=== PATIENT | male | born 2000 | race Two or more races ===

== ENCOUNTER 2021-04-01 23:39 | Emergency (ER) | payer SELFPAY ==
[~2021-04-01] VITALS: Ht 175.3 cm; Wt 90.7 kg
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
--- NOTE | 2021-04-02 00:10 | NUR ---
XRAY AT BEDSIDE
--- NOTE | 2021-04-02 00:22 | NUR ---
[facility] AT BEDSIDE
--- NOTE | 2021-04-02 00:37 | NUR ---
XRAY AT BEDSIDE
[2021-04-02] MEDS ORDERED: HYDROCODONE/APAP 5/325MG TABLET PO ONE (01:30)
[2021-04-02] MEDS ORDERED: IBUPROFEN 600 MG TABLET PO ONE (01:30)
--- NOTE | 2021-04-02 01:30 | NUR ---
emt at bedside placing r wrist velcro splint and herve bandange on left knee.
[2021-04-02] MEDS ORDERED: HYDROCODONE/APAP 5/325MG TABLET ONE (01:31)
[2021-04-02] MEDS ORDERED: IBUPROFEN 600 MG TABLET ONE (01:32)
[2021-04-02] MEDS ORDERED: IBUP-1955 PO (01:43)
[2021-04-02] MEDS ORDERED: TRAM50TA2 PO (01:43)
--- NOTE | 2021-04-02 01:43 | NUR ---
Patient discharged to home in stable condition. Written and verbal after care instructions given. Patient verbalizes understanding of instruction.Pt ambulatory with a steady gait
[2021-04-02 01:50] VITALS: BP 125/85
== END 2021-04-02 01:43 | disposition home or self-care (01) ==
LOC: ER 23:42
DX: S50.12XA Contusion of left forearm, initial encounter (principal); S80.12XA Contusion of left lower leg, initial encounter; S69.82XA Other specified injuries of left wrist, hand and finger(s), initial encounter; V32.5XXA Driver of three-wheeled motor vehicle injured in collision with two- or three-wheeled motor vehicle in traffic accident, initial encounter; Y93.89 Activity, other specified; Y92.413 State road as the place of occurrence of the external cause; Y99.8 Other external cause status
CPT/HCPCS: 73090-TC; 73130-TC; 73564-TC; 73590-TC